=== PATIENT | male | born 1955 | race Caucasian/White ===

== ENCOUNTER 2020-05-09 00:02 | Inpatient (IN) | payer MEDICARE ==
--- NOTE | 2020-05-09 00:20 | ED ---
Chest Pain HPI - General Chief Complaint: Chest Pain Stated Complaint: Chest pain Time Seen by Provider: 05/09/20 00:16 Source: patient Mode of arrival: ambulatory Limitations: no limitations - History of Present Illness Initial Comments: This patient is a 65-year-old man who presents to be evaluated for chest pain. He states that the symptoms had started last night but resolved. The pains recurred this morning and he has taken a total of 6 nitroglycerin throughout the day for them. He indicates pain across the upper chest. States that its a hea vy feeling. No worsening factors, but better with nitroglycerin. Patient states that this is deftly similar to the cardiac pains he has had in the past. No associated symptoms. MD Complaint: chest pain Onset/Timin -: days(s) Onset: during rest Pain Location: left chest, right chest Pain Radiation: LUE Severity: mild Quality: heaviness Consistency: intermittent Improves With: nitroglycerin Worsens With: nothing Treatments Prior to Arrival: nitroglycerin - Related Data Home Medications Medication Instructions Recorded Confirmed Aspirin 81 mg PO DAILY 05/09/20 05/09/20 Atorvastatin [Lipitor] 40 mg PO DAILY 05/09/20 05/09/20 Carvedilol 25 mg PO BID 05/09/20 05/09/20 Cholecalciferol [Vitamin D3 (25 5,000 unit PO DAILY 05/09/20 05/09/20 Mcg = 1000 Iu)] Clopidogrel Bisulfate [Plavix] 75 mg PO DAILY 05/09/20 05/09/20 Isosorbide Mononitrate [Isosorbide 120 mg PO DAILY 05/09/20 05/09/20 Mononitrate ER] Magnesium Oxide [Mag-Oxide] 400 mg PO DAILY 05/09/20 05/09/20 NIFEdipine XL [Procardia XL] 60 mg PO DAILY 05/09/20 05/09/20 Nitroglycerin Sl Tabs [Nitrostat] 0.4 mg PO Q5M PRN 05/09/20 05/09/20 buPROPion SR [Wellbutrin SR] 150 mg PO BID 05/09/20 05/09/20 busPIRone HCL 5 mg PO BID 05/09/20 05/09/20 Previous Rx's Medication Instructions Recorded Lisinopril 20 mg PO BID #30 tab 05/12/20 hydrALAZINE HCL [Apresoline] 75 mg PO TID #270 tab 05/12/20 Allergies Allergy/AdvReac Type Severity Reaction Status Date / Time Penicillins AdvReac Nausea Verified 05/09/20 07:40 Review of Systems ROS Statement: Those systems with pertinent positive or pertinent negative responses have been documented in the HPI. ROS Other: All systems not noted in ROS Statement are negative. Constitutional: Denies: fever, chills Respiratory: Denies: cough, dyspnea Cardiovascular: Reports: chest pain. Denies: palpitations, orthopnea, edema, syncope Gastrointestinal: Denies: abdominal pain, nausea, vomiting, diarrhea, constipation, melena, hematochezia Genitourinary: Denies: dysuria, hematuria Musculoskeletal: Denies: back pain Skin: Denies: rash Neurological: Denies: headache, weakness EKG Findings - EKG Results: EKG: interpreted by FRANSISCOD, sinus rhythm, normal QRS, normal ST/T EKG shows: bradycardia (Rate 53 bpm) - Blocks, [place], Hypertrophy, ST Abn: QRS axis and voltage: left axis deviation (-30 to -90) Past Medical History Past Medical History: Hypertension Additional Past Medical History / Comment(s): [place], Stents, Past Surgical History: Heart Catheterization With Stent Additional Past Surgical History / Comment(s): cx removal Past Psychological History: No Psychological Hx Reported Smoking Status: Never smoker Past Alcohol Use History: None Reported Past Drug Use History: Marijuana General Exam Limitations: no limitations General appearance: alert, in no apparent distress Head exam: Present: atraumatic, normocephalic Eye exam: Present: normal appearance. Absent: scleral icterus, conjunctival injection ENT exam: Present: normal oropharynx Neck exam: Present: normal inspection Respiratory exam: Present: normal lung sounds bilaterally. Absent: respiratory distress, wheezes, rales, rhonchi, stridor Cardiovascular Exam: Present: regular rate, normal rhythm, normal heart sounds. Absent: systolic murmur, diastolic murmur, rubs, gallop GI/Abdominal exam: Present: soft. Absent: distended, tenderness, guarding, rebound, rigid, mass Extremities exam: Present: normal inspection, normal capillary refill. Absent: pedal edema, calf tenderness Back exam: Present: normal inspection Neurological exam: Present: alert Skin exam: Present: warm, dry, intact, normal color. Absent: rash Course Vital Signs 05/09/20 05/09/20 05/09/20 00:05 01:06 02:00 Temperature 98.1 F Pulse Rate 63 55 L 50 L Pulse Rate [ Left] Respiratory 20 18 17 Rate Blood Pressure 187/92 194/106 172/89 Blood Pressure [Left Arm] O2 Sat by Pulse 99 99 99 Oximetry 05/09/20 05/09/20 05/09/20 02:12 02:17 02:40 Temperature 97.9 F Pulse Rate 56 L Pulse Rate [ 54 L Left] Respiratory 20 17 Rate Blood Pressure 177/88 Blood Pressure 200/102 188/101 [Left Arm] O2 Sat by Pulse 96 99 Oximetry Chest Pain MDM - [facility] Patient is 65-year-old man presenting with chest pain he states is very similar to previous coronary chest pain. The patient's initial workup is negative. He has had relief of symptoms with medication here. Patient is admitted to have serial enzymes, telemetry monitoring, cardiology consultation. Disposition Clinical Impression: Acute coronary syndrome Disposition: ADMITTED IP TO THIS HOSP Condition: Serious
[2020-05-09] MEDS ORDERED: MORPHINE SULFATE 4 MG/ML SYRINGE IV STA (00:31)
[2020-05-09] MEDS ORDERED: NITROGLYCERIN OINT 1 INCH/GM PACKET TOPICAL STA (00:31)
[2020-05-09] MEDS ORDERED: ASPIRIN 81 MG PO STA (00:31)
[2020-05-09] MEDS ORDERED: NITROGLYCERIN SL TABS 0.4 MG TAB SUBLINGUAL STA (00:31)
[2020-05-09 00:45] LABS: Basophils % (A) 0 %; Eosinophils # (A) 0.3 k/uL (0-0.7); Eosinophils % (A) 3 %; HCT 43.6 % (39.0-53.0); Lymphocytes # (A) 1.2 k/uL (1.0-4.8); Lymphocytes % (A) 12 %; MCH 30.9 pg (25.0-35.0); MCHC 34.4 g/dL (31.0-37.0); MCV 89.8 fL (80.0-100.0); Mean Platelet Volume 8.4; Monocytes # (A) 0.5 k/uL (0-1.0); Monocytes % (A) 5 %; Neutrophils # (A) 8.1 k/uL (1.3-7.7); Neutrophils % (A) 79 %; Platelet Count 290 k/uL (150-450); RBC 4.86 m/uL (4.30-5.90); RDW 13.3 % (11.5-15.5); WBC 10.3 k/uL (3.8-10.6)
[2020-05-09 00:50] LABS: Partial Thromboplastin Time 25.3 sec (22.0-30.0); Prothrombin Time 10.6 sec (9.0-12.0)
[2020-05-09 00:51] LABS: Albumin 4.8 g/dL (3.5-5.0); Calcium 9.4 mg/dL (8.4-10.2); Potassium 3.6 mmol/L (3.5-5.1); Total Bilirubin 0.4 mg/dL (0.2-1.3); Total Protein 8.2 g/dL (6.3-8.2)
--- NOTE | 2020-05-09 01:03 | XR ---
EXAMINATION TYPE: XR chest 2V DATE OF EXAM: 05/09/2020 COMPARISON: NONE HISTORY: Chest pain TECHNIQUE: FINDINGS: Heart and mediastinum are normal. Lungs are clear. Diaphragm is normal. Bony thorax is inta ct. There are chest leads. IMPRESSION: No active cardiopulmonary disease.
[2020-05-09] MEDS ORDERED: HEPARIN SODIUM,PORCINE 5,000 UNIT/ML 1 ML VIAL IV ONE (01:26)
[2020-05-09] MEDS ORDERED: HEPARIN SODIUM,PORCINE 5,000 UNIT/ML 1 ML VIAL IV PRN (01:26)
[2020-05-09] MEDS ORDERED: LISINOPRIL 20 MG TAB PO STA (01:47)
[2020-05-09] MEDS ORDERED: hydrALAZINE HCL 25 MG TAB PO STA (01:48)
[2020-05-09] MEDS ORDERED: MORPHINE SULFATE 4 MG/ML SYRINGE IV PRN (01:54)
[2020-05-09] MEDS: HEPARIN SOD,PORK IN 0.45% NACL 25,000 UNIT in 0.45% NACL 1 250ML.BAG IV SCH (02:35)
[2020-05-09] MEDS ORDERED: HYDROmorphone 0.5 MG/0.5 ML SYRINGE IVP STA (02:40)
[2020-05-09] MEDS: NITROGLYCERIN SL TABS 0.4 MG TAB SUBLINGUAL PRN ×2 (03:43→03:48)
[2020-05-09] MEDS: buPROPion 75 MG TAB PO SCH ×2 (07:57→20:41)
[2020-05-09] MEDS: MAGNESIUM OXIDE 400 MG TAB PO SCH (07:57)
[2020-05-09] MEDS: ATORVASTATIN 40 MG TAB PO SCH (07:57)
[2020-05-09] MEDS: LISINOPRIL 20 MG TAB PO SCH ×2 (07:57→20:41)
[2020-05-09] MEDS: ASPIRIN 81 MG PO SCH (07:57)
[2020-05-09] MEDS: CLOPIDOGREL 75 MG TAB PO SCH (07:57)
[2020-05-09] MEDS ORDERED: hydrALAZINE HCL 25 MG TAB PO SCH (09:00)
[2020-05-09] MEDS ORDERED: ISOSORBIDE MONONITRATE ER 60 MG TAB.ER.24H PO SCH (09:00)
[2020-05-09] MEDS ORDERED: ISOSORBIDE MONONITRATE ER 30 MG TAB.ER.24H PO SCH (09:00)
[2020-05-09] MEDS ORDERED: ISOSORBIDE MONONITRATE ER 60 MG TAB.ER.24H PO STA (09:43)
--- NOTE | 2020-05-09 09:53 | P.CRDCN ---
History of Present Illness History of present illness: HISTORY OF PRESENTING ILLNESS This is a pleasant 65-year-old male past medical history significant for coronary artery disease s/p multiple PCI's, myocardial infarction, cardiac mass per the patient, hypertension and depression. He does not follow regularly in a cardiology office currently. He is in the process of looking for a new physician. We have been asked to see in consultation for chest pain. According to the patient he has undergone numerous cardiac catheterizations. Most recently was at [facility] earlier this year. He states he has been recommended to undergo bypass grafting however in July of last year he had a myocardial infarction which prolonged the process. Since that time he has not followed up with program admin or a cardiothoracic surgeon. He has been following with his primary care physician in attempts to establish with a cardiothoracic surgeon in [place]. On Saturday evening he started developing a heavy pressure sensation in the midsternal region with episodes of sharp stabbing pains as well. There was radiation down both arms and into his neck associated with nausea and vomiting. He states he was also quite diaphoretic during this episode. He did take nitroglycerin which did relieve his discomfort. Again on Saturday morning he had another episode of chest discomfort prompting him to take another nitro. He continues to have intermittent episodes of ongoing chest pain at rest. No exacerbated by activity or exertion. We requested records from [facility] of most recent cath. Reports reveal in 07/2019 he suffered NSTEMI and received a MARITZA to the distal LAD, MARITZA to the mid RCA and BMS to the distal RCA. On arrival to the emergency department his blood pressure was elevated at 194/106 and gone as high as 200/102. He states he has been compliant with his medications with no recent changes. DIAGNOSTICS EKG reveals sinus bradycardia heart rate of 53 with left axis deviation and evidence of old inferior wall infarct. Chest xray negative for an acute cardiopulmonary process. Laboratory reviewed, WBC 10.3, hemoglobin 15, platelets 290, sodium 138, potassium 3.6, creatinine 1.54 with a GFR of 47, magnesium 2.0, initial troponin was 0.019 and second with 0.041. Current cardiac medications include aspirin 81 mg daily, Plavix 75 mg daily, atorvastatin 40 mg daily, carvedilol 25 mg twice a day, Imdur 120 mg daily, lisinopril 20 mg twice a day, nifedipine 60 mg daily and hydralazine 25 mg 3 times a day. REVIEW OF SYSTEMS At the time of my exam: CONSTITUTIONAL: Denies fever or chills. CARDIOVASCULAR: Complains of chest pain. Denies shortness of breath, orthopnea, PND or palpitations. RESPIRATORY: Denies cough. GASTROINTESTINAL: Complains of intermittent nausea. Denies abdominal pain, diarrhea, constipation or vomiting. MUSCULOSKELETAL: Denies myalgias. NEUROLOGIC: Denies numbness, tingling or weakness. ENDOCRINE: Denies fatigue, weight change, polydipsia or polyurina. GENITOURINARY: Denies burning, hematuria or urgency with micturation. HEMATOLOGIC: Denies history of anemia or bleeding. PHYSICAL EXAMINATION Blood pressure 163/92 heart rate 58 afebrile and maintaining oxygen saturation on room air. CONSTITUTIONAL: No apparent distress. HEENT: Head is normocephalic. Pupils are equal, round. Sclerae anicteric. Mucous membranes of the mouth are moist. No JVD. No carotid bruit. CHEST EXAMINATION: Scattered rhonchi. No rales or wheezes. No chest wall tenderness is noted on palpation or with deep breathing. HEART EXAMINATION: Regular rate and rhythm. S1, S2 heard. No murmurs, gallops or rub. ABDOMEN: Soft, nontender. Positive bowel sounds. EXTREMITIES: 2+ peripheral pulses, no lower extremity edema and no calf tenderness. NEUROLOGIC EXAMINATION: Patient is awake, alert and oriented x3. ASSESSMENT Chest pain Hypertensive emergency Acute kidney injury Coronary artery disease s/p PCI 07/2020 with multiple interventions in the past Dyslipidemia Depression PLAN Continue to obtain serial cardiac enzymes. Initial minimal troponin leak could be secondary to hypertensive emergency. No EKG evidence of acute infarct currently. Continue heparin infusion at this time pending third troponin. Records from [facility] reviewed, they are vague about cardiac anatomy aside from the fact he had PCI. We will request the actual films for review. Obtain 2D echocardiogram and doppler study to assess cardiac structure and function. Increase hydralazine to 75 mg TID. Coreg currently on hold secondary to bradycardia. Further recommendations to follow based on clinical course. Thank you kindly for this consultation. Nurse Practitioner note has been reviewed, I agree with a documented findings and plan of care. Patient was seen and examined. Past Medical History Past Medical History: Hypertension Additional Past Medical History / Comment(s): [place], Stents, History of Any Multi-Drug Resistant Organisms: None Reported Past Surgical History: Heart Catheterization With Stent Additional Past Surgical History / Comment(s): cx removal Past Anesthesia/Blood Transfusion Reactions: No Reported Reaction Date of Last Stent Placement:: 09/2019 Past Psychological History: No Psychological Hx Reported Smoking Status: Never smoker Past Alcohol Use History: None Reported Past Drug Use History: Marijuana Medications and Allergies Home Medications Medication Instructions Recorded Confirmed Type Aspirin 81 mg PO DAILY 05/09/20 05/09/20 History Atorvastatin [Lipitor] 40 mg PO DAILY 05/09/20 05/09/20 History Carvedilol 25 mg PO BID 05/09/20 05/09/20 History Cholecalciferol [Vitamin D3 (25 5,000 unit PO DAILY 05/09/20 05/09/20 History Mcg = 1000 Iu)] Clopidogrel Bisulfate [Plavix] 75 mg PO DAILY 05/09/20 05/09/20 History Isosorbide Mononitrate [Isosorbide 120 mg PO DAILY 05/09/20 05/09/20 History Mononitrate ER] Lisinopril 20 mg PO BID 05/09/20 05/09/20 History Magnesium Oxide [Mag-Oxide] 400 mg PO DAILY 05/09/20 05/09/20 History NIFEdipine XL [Procardia Xl] 60 mg PO DAILY 05/09/20 05/09/20 History Nitroglycerin Sl Tabs [Nitrostat] 0.4 mg PO Q5M PRN 05/09/20 05/09/20 History buPROPion SR [Wellbutrin Sr] 150 mg PO BID 05/09/20 05/09/20 History busPIRone HCL 5 mg PO BID 05/09/20 05/09/20 History hydrALAZINE HCL 25 mg PO TID@0600,1400,2200 05/09/20 05/09/20 History Allergies Allergy/AdvReac Type Severity Reaction Status Date / Time Penicillins AdvReac Nausea Verified 05/09/20 07:40 Physical Exam Vitals: Vital Signs Temp Pulse Pulse Resp BP BP Pulse Ox 05/09/20 07:30 97.8 F 58 L 18 163/92 99 05/09/20 05:00 97.7 F 55 L 16 175/99 96 05/09/20 02:40 56 L 17 177/88 99 05/09/20 02:17 188/101 05/09/20 02:12 97.9 F 54 L 20 200/102 96 05/09/20 02:00 50 L 17 172/89 99 05/09/20 01:06 55 L 18 194/106 99 05/09/20 00:05 98.1 F 63 20 187/92 99 Intake and Output 05/08/20 05/09/20 05/09/20 22:59 06:59 14:59 Intake Total 50.835 Balance 50.835 Intake: Intake, IV Titration 50.835 Amount Heparin Sod,Pork in 0.45% 50.835 NaCl 25,000 unit In 0.45 % NaCl 1 250ml.bag @ 10 UNITS/KG/HR 9.299 mls/hr IV .Q24H [facility] Rx#: [id number] Other: Weight 90.22 kg Results 05/09/20 00:26 05/09/20 00:26 Cardiac Enzymes 05/09/20 05/09/20 05/09/20 Range/Units 00:26 00:26 07:26 AST 25 (17-59) U/L Troponin I 0.019 0.041 H* (0.000-0.034) ng/mL Coagulation 05/09/20 05/09/20 Range/Units 00:26 07:26 PT 10.6 (9.0-12.0) sec APTT 25.3 35.5 H (22.0-30.0) sec CBC 05/09/20 Range/Units 00:26 WBC 10.3 (3.8-10.6) k/uL RBC 4.86 (4.30-5.90) m/uL Hgb 15.0 (13.0-17.5) gm/dL Hct 43.6 (39.0-53.0) % Plt Count 290 (150-450) k/uL Comprehensive Metabolic Panel 05/09/20 Range/Units 00:26 Sodium 138 (137-145) mmol/L Potassium 3.6 (3.5-5.1) mmol/L Chloride 103 (98-107) mmol/L Carbon Dioxide 22 (22-30) mmol/L BUN 10 (9-20) mg/dL Creatinine 1.54 H (0.66-1.25) mg/dL Glucose 109 H (74-99) mg/dL Calcium 9.4 (8.4-10.2) mg/dL AST 25 (17-59) U/L ALT 20 (4-49) U/L Alkaline Phosphatase 94 (38-126) U/L Total Protein 8.2 (6.3-8.2) g/dL Albumin 4.8 (3.5-5.0) g/dL Current Medications Generic Name Dose Route Start Last Admin Trade Name Freq PRN Reason Stop Dose Admin Aspirin 81 mg 05/09/20 09:00 05/09/20 07:57 Aspirin PO 81 mg DAILY [facility] Administration Atorvastatin Calcium 40 mg 05/09/20 09:00 05/09/20 07:57 Lipitor PO 40 mg DAILY [facility] Administration Bupropion HCl 150 mg 05/09/20 09:00 05/09/20 07:57 Wellbutrin PO 150 mg BID [facility] Administration Clopidogrel Bisulfate 75 mg 05/09/20 09:00 05/09/20 07:57 Plavix PO 75 mg DAILY [facility] Administration Heparin Sodium (Porcine) 0 unit 05/09/20 01:26 Heparin IV PER PROTOCOL PRN Low PTT Protocol Hydralazine HCl 75 mg 05/09/20 09:00 Apresoline PO TID [facility] Heparin Sodium/Sodium Chloride 250 mls @ 9.299 mls/hr 05/09/20 01:30 05/09/20 08:03 25,000 unit/ Sodium Chloride IV 12 units/kg/hr .Q24H [facility] 11.158 mls/hr Titration Protocol 10 UNITS/KG/HR Isosorbide Mononitrate 60 mg 05/09/20 09:00 05/09/20 08:36 Imdur PO 30 mg DAILY [facility] Administration Lisinopril 20 mg 05/09/20 09:00 05/09/20 07:57 Zestril PO 20 mg BID [facility] Administration Magnesium Oxide 400 mg 05/09/20 09:00 05/09/20 07:57 Mag-Ox PO 400 mg DAILY [facility] Administration Morphine Sulfate 4 mg 05/09/20 01:54 Morphine Sulfate (Inj) IV Q5M PRN Chest Pain Nifedipine 60 mg 05/09/20 09:00 05/09/20 07:58 Procardia Xl PO 60 mg DAILY [facility] Administration Nitroglycerin 0.4 mg 05/09/20 01:54 05/09/20 03:43 Nitrostat SUBLINGUAL 0.4 mg Q5M PRN Administration Chest Pain Sodium Chloride 10 ml 05/09/20 09:00 05/09/20 07:59 Saline Flush IV Not Given BID [facility] Intake and Output 05/08/20 05/09/20 05/09/20 22:59 06:59 14:59 Intake Total 50.835 Balance 50.835 Intake: Intake, IV Titration 50.835 Amount Heparin Sod,Pork in 0.45% 50.835 NaCl 25,000 unit In 0.45 % NaCl 1 250ml.bag @ 10 UNITS/KG/HR 9.299 mls/hr IV .Q24H [facility] Rx#: [id number] Other: Weight 90.22 kg 05/09/20 00:26 05/09/20 00:26
[2020-05-09] MEDS: hydrALAZINE HCL 25 MG TAB PO SCH ×3 (10:58→22:48)
[2020-05-09] MEDS ORDERED: ALPRAZolam 0.5 MG TAB PO PRN (12:11)
[2020-05-09] MEDS ORDERED: SODIUM CHLORIDE 0.9% 1,000 ML in EMPTY BAG 1 BAG IV ONE (12:11)
[2020-05-09] MEDS ORDERED: ALPRAZolam 0.25 MG TAB PO PRN (12:11)
--- NOTE | 2020-05-09 12:24 | P.HPIM ---
History of Present Illness This is a pleasant 65 years old male with past medical history of coronary artery disease status post stent, hypertension. Patient states that he has history of 10-12 stents, he follows up with basketball assembler and referred however he referred him last month also he follow-up with Aleena Tyler . Presents because of chest pain 2-3 days duration, with lack similar chest pain when he has heart attack. Centrally radiating to both arm about 7-8/10 in severity, associated with nausea vomiting but no dyspnea. Patient states that he was compliant with his medication Also is complaining of from little bit increased frequency of urination with little amount about 4-5 times per night. No diarrhea. Denies smoking, alcohol or illicit drugs Vital signs stable, blood pressure on the high side 165/88, was 200/1 or 2 upon admission. Labs including CBC, INR, liver enzymes are unremarkable. Creatinine is elevated at 1.5, unknown baseline. Troponin is -0.019 and then increase to 0.041 Chest x-ray: No acute process by radiologist. EKG showing sinus bradycardia at [address]-T changes and QTC of 412. In the emergency room patient got aspirin 324 mg and was started on heparin drip, also receive blood pressure medication Review of Systems CONSTITUTIONAL: No fever, no malaise, no fatigue. HEENT: No recent visual problems or hearing problems. Denied any sore throat. CARDIOVASCULAR: No orthopnea, PND, no palpitations, no syncope. PULMONARY: No shortness of breath, no cough, no hemoptysis. GASTROINTESTINAL: No diarrhea, no nausea, no vomiting, no abdominal pain. Normoactive bowel sounds. NEUROLOGICAL: No headaches, no weakness, no numbness. HEMATOLOGICAL: Denies any bleeding or petechiae. GENITOURINARY: Denies any burning micturition, frequency, or urgency. MUSCULOSKELETAL/RHEUMATOLOGICAL: Denies any joint pain, swelling, or any muscle pain. ENDOCRINE: Denies any polyuria or polydipsia. Past Medical History Past Medical History: Hypertension Additional Past Medical History / Comment(s): [place], Stents, History of Any Multi-Drug Resistant Organisms: None Reported Past Surgical History: Heart Catheterization With Stent Additional Past Surgical History / Comment(s): cx removal Past Anesthesia/Blood Transfusion Reactions: No Reported Reaction Date of Last Stent Placement:: 09/2019 Past Psychological History: No Psychological Hx Reported Smoking Status: Never smoker Past Alcohol Use History: None Reported Past Drug Use History: Marijuana Medications and Allergies Home Medications Medication Instructions Recorded Confirmed Type Aspirin 81 mg PO DAILY 05/09/20 05/09/20 History Atorvastatin [Lipitor] 40 mg PO DAILY 05/09/20 05/09/20 History Carvedilol 25 mg PO BID 05/09/20 05/09/20 History Cholecalciferol [Vitamin D3 (25 5,000 unit PO DAILY 05/09/20 05/09/20 History Mcg = 1000 Iu)] Clopidogrel Bisulfate [Plavix] 75 mg PO DAILY 05/09/20 05/09/20 History Isosorbide Mononitrate [Isosorbide 120 mg PO DAILY 05/09/20 05/09/20 History Mononitrate ER] Lisinopril 20 mg PO BID 05/09/20 05/09/20 History Magnesium Oxide [Mag-Oxide] 400 mg PO DAILY 05/09/20 05/09/20 History NIFEdipine XL [Procardia Xl] 60 mg PO DAILY 05/09/20 05/09/20 History Nitroglycerin Sl Tabs [Nitrostat] 0.4 mg PO Q5M PRN 05/09/20 05/09/20 History buPROPion SR [Wellbutrin Sr] 150 mg PO BID 05/09/20 05/09/20 History busPIRone HCL 5 mg PO BID 05/09/20 05/09/20 History hydrALAZINE HCL 25 mg PO TID@0600,1400,2200 05/09/20 05/09/20 History Allergies Allergy/AdvReac Type Severity Reaction Status Date / Time Penicillins AdvReac Nausea Verified 05/09/20 07:40 Physical Exam Vitals: Vital Signs Temp Pulse Pulse Resp BP BP Pulse Ox 05/09/20 10:58 67 18 165/88 97 05/09/20 07:30 97.8 F 58 L 18 163/92 99 05/09/20 05:00 97.7 F 55 L 16 175/99 96 05/09/20 02:40 56 L 17 177/88 99 05/09/20 02:17 188/101 05/09/20 02:12 97.9 F 54 L 20 200/102 96 05/09/20 02:00 50 L 17 172/89 99 05/09/20 01:06 55 L 18 194/106 99 05/09/20 00:05 98.1 F 63 20 187/92 99 Intake and Output 05/08/20 05/09/20 05/09/20 22:59 06:59 14:59 Intake Total 50.835 Balance 50.835 Intake: Intake, IV Titration 50.835 Amount Heparin Sod,Pork in 0.45% 50.835 NaCl 25,000 unit In 0.45 % NaCl 1 250ml.bag @ 10 UNITS/KG/HR 9.299 mls/hr IV .Q24H [facility] Rx#: [id number] Other: Weight 90.22 kg GENERAL: The patient is alert and oriented x3, not in any acute distress. Well developed, well nourished. HEENT: Pupils are round and equally reacting to light. EOMI. No scleral icterus. No conjunctival pallor. Normocephalic, atraumatic. No pharyngeal erythema. No thyromegaly. CARDIOVASCULAR: S1 and S2 present. No murmurs, rubs, or gallops. PULMONARY: Chest is clear to auscultation, no wheezing or crackles. ABDOMEN: Soft, nontender, nondistended, normoactive bowel sounds. No palpable organomegaly. MUSCULOSKELETAL: No joint swelling or deformity. EXTREMITIES: No cyanosis, clubbing, or pedal edema. NEUROLOGICAL: Gross neurological examination did not reveal any focal deficits. SKIN: No rashes. No petechiae Results CBC & Chem 7: 05/09/20 00:26 05/09/20 00:26 Labs: Abnormal Lab Results - Last 24 Hours (Table) 05/09/20 05/09/20 05/09/20 Range/Units 00:26 00:26 07:26 Neutrophils # 8.1 H (1.3-7.7) k/uL APTT 35.5 H (22.0-30.0) sec Creatinine 1.54 H (0.66-1.25) mg/dL Glucose 109 H (74-99) mg/dL Troponin I (0.000-0.034) ng/mL 05/09/20 Range/Units 07:26 Neutrophils # (1.3-7.7) k/uL APTT (22.0-30.0) sec Creatinine (0.66-1.25) mg/dL Glucose (74-99) mg/dL Troponin I 0.041 H* (0.000-0.034) ng/mL Thrombosis Risk Factor Assmnt - Choose All That Apply Each Risk Factor Represents 2 Points: Age 61-74 years Thrombosis Risk Factor Assessment Total Risk Factor Score: 2 Thrombosis Risk Factor Assessment Level: Low Risk Assessment and Plan Assessment: Elevated troponin, suspicious for non-STEMI Hypertension, with urgency Acute kidney injury History of coronary artery disease status post stent placement Plan: This is a pleasant 65 years old male who presents with chest pain and hypertensive urgency. Also achy. Continue with aspirin and heparin drip, cardiology consult. Continue with intravenous hydration. Resume his blood pressure medication of hydralazine, nifedipine and Coreg which is increased to 25 mg twice daily, hydralazine increased to 75 mg 3 times a day, also call nephrology consult and urinalysis Labs and medication were reviewed.. Continue same treatment. Continue with symptomatic treatment. Resume home medication. Monitor lytes and vitals. DVT and GI prophylaxis. Further recommendations of the clinical course of the patient DVT prophylaxis: heparin GI Prophylaxis: Pepcid PT/OT: Pending Prognosis is guarded
[2020-05-09] MEDS: CARVEDILOL 12.5 MG TAB PO SCH (17:22)
[2020-05-09] MEDS: FAMOTIDINE 20 MG/2 ML VIAL IV SCH (20:41)
[2020-05-10 01:00] LABS: Appearance,Urine Clear (Clear); Bilirubin,Urine Negative (Negative); Blood,Urine Negative (Negative); Color,Urine Yellow; Glucose,Urine (UA) Negative (Negative); Ketones,Urine Negative (Negative); Leukocyte Esterase,Urine Negative (Negative); Nitrite,Urine Negative (Negative); Protein,Urine Negative (Negative); Specific Gravity,Urine 1.005 (1.001-1.035); Urobilinogen,Urine <2.0 mg/dL (<2.0)
[2020-05-10] MEDS: HEPARIN SOD,PORK IN 0.45% NACL 25,000 UNIT in 0.45% NACL 1 250ML.BAG IV SCH (01:31)
[2020-05-10 05:46] LABS: Basophils % (A) 1 %; Eosinophils # (A) 0.2 k/uL (0-0.7); Eosinophils % (A) 3 %; HCT 41.8 % (39.0-53.0); HGB 14.1 gm/dL (13.0-17.5); Lymphocytes # (A) 1.8 k/uL (1.0-4.8); Lymphocytes % (A) 23 %; MCH 30.5 pg (25.0-35.0); MCHC 33.7 g/dL (31.0-37.0); MCV 90.6 fL (80.0-100.0); Mean Platelet Volume 8.3; Monocytes # (A) 0.5 k/uL (0-1.0); Monocytes % (A) 7 %; Neutrophils % (A) 64 %; Platelet Count 237 k/uL (150-450); RBC 4.61 m/uL (4.30-5.90); RDW 13.3 % (11.5-15.5); WBC 7.8 k/uL (3.8-10.6)
[2020-05-10 05:56] LABS: African American GFR (CKD) >90 (>60 ml/min/1.73 sqM); Anion Gap 8 mmol/L; Blood Urea Nitrogen 9 mg/dL (9-20); Calcium 8.9 mg/dL (8.4-10.2); Carbon Dioxide 25 mmol/L (22-30); Chloride 106 mmol/L (98-107); Cholesterol 90 mg/dL (<200); Glucose 93 mg/dL (74-99); HDL Cholesterol 30 mg/dL (40-60); LDL Cholesterol,Calculated 32 mg/dL (0-99); Non-African American GFR(CKD) 85 (>60 ml/min/1.73 sqM); Sodium 139 mmol/L (137-145); Triglycerides 142 mg/dL (<150)
--- NOTE | 2020-05-10 07:52 | P.PN ---
Subjective Progress Note Date: 05/10/20 Principal diagnosis: Acute coronary event This is a 65-year-old gentleman with coronary artery disease and prior coronary stenting multiple times performed at [facility] as well as hypertension and dyslipidemia presented to the hospital with chest discomfort and ruled in for acute coronary event. He was seen this morning. Unfortunately he continues to have mild ongoing chest discomfort. He is scheduled to undergo a heart catheterization this morning. The procedure in details was explained to him and he would like to pursue right radial approach. Meanwhile will continue the current medical regimen. Vital signs are stable at this point. Objective - Vital Signs Vital signs: Vital Signs Temp 97.9 F 05/10/20 04:20 Pulse 67 05/10/20 04:20 Resp 16 05/10/20 04:20 BP 153/66 05/10/20 04:20 Pulse Ox 96 05/10/20 04:20 Intake & Output 05/09/20 05/10/20 05/10/20 18:59 06:59 18:59 Intake Total 368.011 621.989 Balance 368.011 621.989 Weight 90.2 kg Intake: Intake, IV Titration 128.011 121.989 Amount Heparin Sod,Pork in 0.45% 128.011 121.989 NaCl 25,000 unit In 0.45 % NaCl 1 250ml.bag @ 10 UNITS/KG/HR 9.299 mls/hr IV .Q24H [facility] Rx#: [id number] Oral 240 500 Other: # Voids 1 1 - Constitutional General appearance: Present: no acute distress - Respiratory Respiratory: bilateral: CTA - Cardiovascular Rhythm: regular Heart sounds: normal: S1, S2 - Labs CBC & Chem 7: 05/10/20 05:28 05/10/20 05:28 Labs: Abnormal Lab Results - Last 24 Hours (Table) 05/09/20 05/09/20 05/09/20 Range/Units 07:26 13:19 20:48 APTT 33.1 H 44.1 H (22.0-30.0) sec Troponin I 0.041 H* (0.000-0.034) ng/mL HDL Cholesterol (40-60) mg/dL 05/10/20 05/10/20 Range/Units 05:28 05:28 APTT 45.3 H (22.0-30.0) sec Troponin I (0.000-0.034) ng/mL HDL Cholesterol 30 L (40-60) mg/dL Assessment and Plan Assessment: Assessment #1 acute coronary event #2 coronary artery disease and multiple stenting in the past #3 multiple comorbid conditions Plan #1 proceed with coronary angiogram #2 further recommendation to follow that
[2020-05-10] MEDS: CARVEDILOL 12.5 MG TAB PO SCH ×2 (08:00→16:47)
[2020-05-10] MEDS: hydrALAZINE HCL 25 MG TAB PO SCH ×3 (08:01→20:57)
[2020-05-10] MEDS: ISOSORBIDE MONONITRATE ER 60 MG TAB.ER.24H PO SCH (08:01)
[2020-05-10] MEDS: LISINOPRIL 20 MG TAB PO SCH ×2 (08:01→20:57)
[2020-05-10] MEDS: CLOPIDOGREL 75 MG TAB PO SCH (08:01)
[2020-05-10] MEDS: MAGNESIUM OXIDE 400 MG TAB PO SCH (08:01)
[2020-05-10] MEDS: FAMOTIDINE 20 MG/2 ML VIAL IV SCH ×2 (08:01→20:56)
[2020-05-10] MEDS: ASPIRIN 81 MG PO SCH (08:01)
[2020-05-10] MEDS: ATORVASTATIN 40 MG TAB PO SCH (08:01)
[2020-05-10] MEDS: buPROPion 75 MG TAB PO SCH ×2 (08:02→21:26)
--- NOTE | 2020-05-10 08:16 | P.NPCON ---
History of Present Illness - Reason for Consult acute renal failure - History of Present Illness Reason for consultation: Acute kidney injury History of present illness: Patient is a 65-year-old male seen in renal consultation for acute kidney injury. Patient presented to the hospital with chest pain. Patient states the chest was started about 1 day prior to admission for which she took multiple nitroglycerin throughout the day. Patient states the pain is on the right part of his chest. He describes the pain as stabbing as well as pressure-like. He does admit to radiation down both his arms. He has history of significant coronary artery disease with multiple stents. He denies any prior history of kidney disease. No history of diabetes. Denies family history of renal disease. Patient's creatinine was 1.54 on admission and is 0.94 today. Blood pressure on admission was in the systolic 180s to 190s but is now much better controlled. Denies hematuria or dysuria. He schedule for cardiac catheterization today. He was started on IV fluids last night. Denies vomiting or diarrhea. No abdominal pain. No syncopal episodes. Vital signs are stable. General: The patient appeared well nourished and normally developed. HEENT: Head exam is unremarkable. Neck is without jugular venous distension. LUNGS: Lungs are clear to auscultation and percussion. Breath sounds decreased. HEART: Rate and Rhythm are regular. ABDOMEN: Soft, nontender. EXTREMITITES: No clubbing, cyanosis, or edema. Past Medical History Past Medical History: Hypertension Additional Past Medical History / Comment(s): LA, Stents, History of Any Multi-Drug Resistant Organisms: None Reported Past Surgical History: Heart Catheterization With Stent Additional Past Surgical History / Comment(s): cx removal Past Anesthesia/Blood Transfusion Reactions: No Reported Reaction Date of Last Stent Placement:: 09/2019 Past Psychological History: No Psychological Hx Reported Smoking Status: Never smoker Past Alcohol Use History: None Reported Past Drug Use History: Marijuana Medications and Allergies Home Medications Medication Instructions Recorded Confirmed Type Aspirin 81 mg PO DAILY 05/09/20 05/09/20 History Atorvastatin [Lipitor] 40 mg PO DAILY 05/09/20 05/09/20 History Carvedilol 25 mg PO BID 05/09/20 05/09/20 History Cholecalciferol [Vitamin D3 (25 5,000 unit PO DAILY 05/09/20 05/09/20 History Mcg = 1000 Iu)] Clopidogrel Bisulfate [Plavix] 75 mg PO DAILY 05/09/20 05/09/20 History Isosorbide Mononitrate [Isosorbide 120 mg PO DAILY 05/09/20 05/09/20 History Mononitrate ER] Lisinopril 20 mg PO BID 05/09/20 05/09/20 History Magnesium Oxide [Mag-Oxide] 400 mg PO DAILY 05/09/20 05/09/20 History NIFEdipine XL [Procardia Xl] 60 mg PO DAILY 05/09/20 05/09/20 History Nitroglycerin Sl Tabs [Nitrostat] 0.4 mg PO Q5M PRN 05/09/20 05/09/20 History buPROPion SR [Wellbutrin Sr] 150 mg PO BID 05/09/20 05/09/20 History busPIRone HCL 5 mg PO BID 05/09/20 05/09/20 History hydrALAZINE HCL 25 mg PO TID@0600,1400,2200 05/09/20 05/09/20 History Allergies Allergy/AdvReac Type Severity Reaction Status Date / Time Penicillins AdvReac Nausea Verified 05/09/20 07:40 Physical Exam Vitals: Vital Signs Temp Pulse Resp BP BP Pulse Ox 05/10/20 04:20 97.9 F 67 16 153/66 96 05/09/20 22:43 130/72 05/09/20 20:29 98.1 F 63 16 136/62 95 05/09/20 16:45 87 162/84 97 05/09/20 10:58 67 18 165/88 97 Intake and Output 05/09/20 05/10/20 05/10/20 22:59 06:59 14:59 Intake Total 740 121.989 Balance 740 121.989 Intake: Intake, IV Titration 121.989 Amount Heparin Sod,Pork in 0.45% 121.989 NaCl 25,000 unit In 0.45 % NaCl 1 250ml.bag @ 10 UNITS/KG/HR 9.299 mls/hr IV .Q24H [facility] Rx#: [id number] Oral 740 Other: # Voids 1 Weight 90.2 kg Results - Lab Results Most recent lab results Calcium 8.9 mg/dL (8.4-10.2) 05/10/20 05:28 Magnesium 2.0 mg/dL (1.6-2.3) 05/10/20 05:28 05/10/20 05:28 05/10/20 05:28 Assessment and Plan Plan: Assessment: 1. Acute kidney injury mostly prerenal secondary to hemodynamic instability. Creatinine was 1.54 on admission and is 0.94 today. UA benign. 2. Chest pain secondary to acute coronary syndrome. Etiology following. Scheduled for coronary angiogram today. 3. History of coronary disease with multiple stents. 4. Benign hypertension. Better controlled. Plan: Maintain normal saline at current rate. Hep-Lock 10 hours post IV contrast exposure. Continue to monitor renal function and urine output. Avoid nephrotoxins. Thank you for the consultation. I will continue to follow patient with you during his hospital stay.
[2020-05-10] MEDS ORDERED: MAGNESIUM OXIDE 400 MG PO SCH (09:00)
[2020-05-10] MEDS ORDERED: ISOSORBIDE MONONITRATE ER 30 MG TAB.ER.24H PO SCH (09:00)
--- NOTE | 2020-05-10 09:05 | ECHOF ---
Referral Reason:CAD/ CP MEASUREMENTS -------- HEIGHT: 182.9 cm WEIGHT: 89.8 kg BP: 163/92 RVIDd: 3.6 cm (< 3.3) IVSd: 1.9 cm (0.6 - 1.1) LVIDd: 3.8 cm (3.9 - 5.3) LVPWd: 1.8 cm (0.6 - 1.1) IVSs: 2.4 cm LVIDs: 2.7 cm LVPWs: 2.0 cm LAESV Index (A-L): 27.91 ml/m Ao Diam: 3.9 cm (2.0 - 3.7) AV Cusp: 2.2 cm (1.5 - 2.6) MV EXCURSION: 15.119 mm (> 18.000) MV EF SLOPE: 30 mm/s (70 - 150) EPSS: 0.7 cm MV E Lex: 0.54 m/s MV DecT: 355 ms MV A Lex: 0.74 m/s MV E/A Ratio: 0.73 AR PHT: 1025 ms RAP: 5.00 mmHg RVSP: 15.28 mmHg FINDINGS -------- This was a technically adequate study. The left ventricular size is normal. There is severe concentric left ventricular hypertrophy. Ove rall left ventricular systolic function is normal with, an EF between 55 - 60 %. The diastolic fill ing pattern is normal for the age of the patient 9.25. The right ventricle is mildly enlarged. Normal LA size by volume 22+/-6 ml/m2. The right atrial size is normal. Interatrial and interventricular septum intact. The aortic valve is trileaflet and appears structurally normal. There is mild aortic valve sclerosi s. Trace to mild aortic regurgitation. There is no evidence of aortic stenosis. There is trace to mild mitral regurgitation. Mild tricuspid regurgitation present. There is no evidence of pulmonary hypertension. The right v entricular systolic pressure, as measured by Doppler, is 15.28mmHg. There is no pulmonic regurgitation present. The mass is located in the left atrial cavity. The mass appears to be attached at the fossa ovalis/ atrial septum. The aortic root size is normal. Normal inferior vena cava with normal inspiratory collapse consistent with estimated right atrial pre ssure of 5 mmHg. There is no pericardial effusion. CONCLUSIONS -------- 1. This was a technically adequate study. 2. The left ventricular size is normal. 3. There is severe concentric left ventricular hypertrophy. 4. Overall left ventricular systolic function is normal with, an EF between 55 - 60 %. 5. The diastolic filling pattern is normal for the age of the patient 9.25 6. The right ventricle is mildly enlarged. 7. Normal LA size by volume 22+/-6 ml/m2. 8. The right atrial size is normal. 9. Interatrial and interventricular septum intact. 10. The aortic valve is trileaflet and appears structurally normal. 11. There is mild aortic valve sclerosis. 12. Trace to mild aortic regurgitation. 13. There is no evidence of aortic stenosis. 14. There is trace to mild mitral regurgitation. 15. Mild tricuspid regurgitation present. 16. There is no evidence of pulmonary hypertension. 17. The right ventricular systolic pressure, as measured by Doppler, is 15.28mmHg. 18. There is no pulmonic regurgitation present. 19. The mass appears to be attached at the fossa ovalis/atrial septum. 20. The aortic root size is normal. 21. Normal inferior vena cava with normal inspiratory collapse consistent with estimated right atrial pressure of 5 mmHg. 22. There is no pericardial effusion. SHOTBLAST OPERATOR: Paty Mcgregor RDCS
[2020-05-10] MEDS ORDERED: SODIUM CHLORIDE 0.9% 1,000 ML IV ONE (10:21)
[2020-05-10] MEDS ORDERED: MIDAZOLAM 2 MG/2 ML VIAL IVP ONE ×3 (10:27→10:47)
[2020-05-10] MEDS ORDERED: LIDOCAINE 1% INJ 10MG/ML (20 ML MDV) SQ ONE (10:47)
[2020-05-10] MEDS ORDERED: HEPARIN SODIUM 1,000 UN/ML (10ML VL) IV ONE ×2 (10:49→11:00)
[2020-05-10] MEDS ORDERED: VERAPAMIL SYRINGE (5 MG/10 ML) INTRAARTER ONE (10:49)
[2020-05-10] MEDS ORDERED: SODIUM CHLORIDE 0.9% 500 ML 500 ML IV ONE (10:51)
[2020-05-10] MEDS: fentaNYL (PF) 50 MCG/ML 2 ML AMP IVP ONE ×2 (10:58→11:12)
[2020-05-10] MEDS ORDERED: IOPAMIDOL-370 100ML BTL INJ ONE ×2 (11:06→11:17)
[2020-05-10] MEDS ORDERED: NITROGLYCERIN 1000MCG/10ML SYRINGE INTRACORON ONE (11:12)
[2020-05-10] MEDS ORDERED: CLOPIDOGREL 75 MG TAB PO ONE (11:17)
[2020-05-10] MEDS ORDERED: ATROPINE SULFATE 0.1 MG/ML 10ML SYRINGE IV PRN (11:44)
[2020-05-10] MEDS ORDERED: NITROGLYCERIN SL TABS 0.4 MG TAB SUBLINGUAL PRN (11:44)
[2020-05-10] MEDS ORDERED: ZOLPIDEM 5 MG TAB PO PRN (11:44)
[2020-05-10] MEDS ORDERED: MAG HYDROX/AL HYDROX/SIMETH 30 ML CUP PO PRN (11:44)
[2020-05-10] MEDS ORDERED: RX INFO: IV CONTRAST WAS GIVEN 1 EACH MISC MISCELLANE PRN (11:44)
[2020-05-10] MEDS ORDERED: SODIUM CHLORIDE 0.9% 1,000 ML IV SCH (11:45)
--- NOTE | 2020-05-10 12:29 | CC ---
CARDIAC CATHETERIZATION REPORT DATE OF SERVICE: May 10, 2020 PERFORMING PHYSICIAN: Howard Garces MD. PROCEDURE PERFORMED: 1. Selective right and left coronary angiogram. 2. Successful PTCA of the distal right coronary artery using 3.5 mm balloon with an excellent angiographic result and reduction of stenosis from 90% to 10%. 3. Left heart catheterization. 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 He continues to have ongoing chest discomfort. We offered the patient to be transferred to [facility], but the patient would like to relocate in this area and establish a wiping rag washer in this area. APPROACH: Right radial artery. COMPLICATION: None. LEVEL OF SEDATION: Moderate with sedation length of 34 minutes. PROCEDURE DESCRIPTION: After obtaining an informed consent, the patient was brought to the cardiac baker laboratory. The right radial artery was cannulated using micropuncture technique and a micropuncture wire passed easily. Then I placed a 6-Mexican sheath. At that point, anticoagulation was initiated using heparin and the patient was given a total of 10,000 units of heparin IV. Selective right and left coronary angiogram performed using JR4 and JL3.5 catheters. After that, I did intervene on the right coronary artery. Please see a separate paragraph for that. After that, I did leave heart catheterization using 6-Mexican pigtail catheter. The procedure was completed without any complication. SELECTIVE CORONARY ANGIOGRAM: 1. The right coronary artery is a large caliber vessel and it is a dominant vessel. The RCA is stented in the mid and distal portion. There was severe in-stent restenosis involving the distal RCA appeared to be in the range of 90% to 95%. The RCA after that bifurcates into PDA and PLV branches. The PDA branch is a moderate caliber vessel with severe lesion involving the midportion and the PLV branch is a large caliber vessel with mild disease only. 2. The left main is a long left main and appeared to be angiographically normal. It bifurcates into LCX, ramus intermedius, and left anterior descending artery. 3. The LCX is a moderate caliber vessel. The LCX is chronically occluded in the proximal portion, which seems to be in-stent occlusion. 4. The ramus intermedius is a moderate caliber vessel and seems to be stented and the stent is patent. 5. The LAD is a large caliber vessel. The LAD has long area of stent in the midportion with mild in-stent restenosis. The proximal LAD appeared to have mild de Tere disease only and the LAD distally appeared to have a lesion in the range of 50%, which appeared to be also de Tere. HEMODYNAMICS: The LVEDP was about 6 to 7 mm mmHg without significant gradient across aortic valve. PCI OF THE RCA: Anticoagulation was initiated using heparin with continuous ACT monitoring throughout the procedure. I gave the patient 32035 units of heparin at the beginning of the procedure with additional 2000 during the procedure. I did engage the RCA using JR4 guide. I did wire it using a run-through wire. I did balloon angioplasty of the distal RCA using 3.5 x 15 mm balloon. Then 3.0 x 10 mm AngioSculpt balloon. The angiogram showed excellent angiographic results. There was multiple layers of stent in that segment of the distal RCA and we got good angiographic results with balloon angioplasty alone without adding a new stent. CONCLUSION: 1. Critical in-stent restenosis involving the distal RCA. I did successful PTCA ballooning of the distal RCA. 2. Normal left main coronary artery. 3. Chronic total occlusion of the left circumflex which seems to be in-stent occlusion. 4. Patent stent in the ramus intermedius coronary artery. 5. Patent stent in the mid left anterior descending artery. POSTPROCEDURE MANAGEMENT: 1. Maximize medical treatment. 2. Follow up with the patient. MMODL / IJN: [id number] /
--- NOTE | 2020-05-10 17:56 | P.PN ---
Subjective This is a pleasant 65 years old male with past medical history of coronary artery disease status post stent, hypertension. Patient states that he has history of 10-12 stents, he follows up with catalogue clerk and referred however he referred him last month also he follow-up with Aleena Tyler . Presents because of chest pain 2-3 days duration, with lack similar chest pain when he has heart attack. Centrally radiating to both arm about 7-8/10 in severity, associated with nausea vomiting but no dyspnea. Patient states that he was compliant with his medication Also is complaining of from little bit increased frequency of urination with little amount about 4-5 times per night. No diarrhea. Denies smoking, alcohol or illicit drugs Vital signs stable, blood pressure on the high side 165/88, was 200/1 or 2 upon admission. Labs including CBC, INR, liver enzymes are unremarkable. Creatinine is elevated at 1.5, unknown baseline. Troponin is -0.019 and then increase to 0.041 Chest x-ray: No acute process by radiologist. EKG showing sinus bradycardia at [address]-T changes and QTC of 412. In the emergency room patient got aspirin 324 mg and was started on heparin drip, also receive blood pressure medication 05/10/2020 Patient seen the walking with no difficulty, he denies chest pain or dyspnea. He underwent cardiac cath today and stent was placed in the right coronary artery were resolving of his stenosis from 90% down to 10%. Vitals are stable and creatinine back to normal at 0.9. Nephrology input is appreciated. Patient is currently on aspirin and Plavix Objective - Vital Signs Vital signs: Vital Signs Temp 97.9 F 05/10/20 16:00 Pulse 73 05/10/20 16:00 Resp 18 05/10/20 16:00 BP 121/64 05/10/20 16:00 Pulse Ox 96 05/10/20 16:00 Intake & Output 05/09/20 05/10/20 05/10/20 18:59 06:59 18:59 Intake Total 368.011 621.989 375 Balance 368.011 621.989 375 Weight 90.2 kg Intake: IV 375 Intake, IV Titration 128.011 121.989 Amount Heparin Sod,Pork in 0.45% 128.011 121.989 NaCl 25,000 unit In 0.45 % NaCl 1 250ml.bag @ 10 UNITS/KG/HR 9.299 mls/hr IV .Q24H [facility] Rx#: [id number] Oral 240 500 Other: # Voids 1 1 - Exam GENERAL: The patient is alert and oriented x3, not in any acute distress. Well developed, well nourished. HEENT: Pupils are round and equally reacting to light. EOMI. No scleral icterus. No conjunctival pallor. Normocephalic, atraumatic. No pharyngeal erythema. No thyromegaly. CARDIOVASCULAR: S1 and S2 present. No murmurs, rubs, or gallops. PULMONARY: Chest is clear to auscultation, no wheezing or crackles. ABDOMEN: Soft, nontender, nondistended, normoactive bowel sounds. No palpable organomegaly. MUSCULOSKELETAL: No joint swelling or deformity. EXTREMITIES: No cyanosis, clubbing, or pedal edema. NEUROLOGICAL: Gross neurological examination did not reveal any focal deficits. SKIN: No rashes. no petechiae. - Labs CBC & Chem 7: 05/10/20 05:28 05/10/20 05:28 Labs: Abnormal Lab Results - Last 24 Hours (Table) 05/09/20 05/10/20 05/10/20 Range/Units 20:48 05:28 05:28 APTT 44.1 H 45.3 H (22.0-30.0) sec HDL Cholesterol 30 L (40-60) mg/dL Assessment and Plan Assessment: Elevated troponin, suspicious for non-STEMI. Status post cardiac cath and stent placement of the right coronary artery. Hypertension, with urgency, currently controlled Acute kidney injury, back to normal History of coronary artery disease status post stent placement Plan: This is a pleasant 65 years old male who presents with chest pain and hypertensive urgency. Status post stent of the RCA. Continue with aspirin and Plavix, cardiology consult. Continue with intravenous hydration. Resume his blood pressure medication of hydralazine, nifedipine and Coreg which is increased to 25 mg twice daily, hydralazine increased to 75 mg 3 times a day Labs and medication were reviewed.. Continue same treatment. Continue with symptomatic treatment. Resume home medication. Monitor lytes and vitals. DVT and GI prophylaxis. Further recommendations of the clinical course of the patient DVT prophylaxis: heparin GI Prophylaxis: Pepcid Prognosis is guarded Possible discharge in 24-48 hours
[2020-05-10] MEDS: HEPARIN SODIUM,PORCINE 5,000 UNIT/ML 1 ML VIAL SQ SCH ×2 (20:56→21:07)
[2020-05-11] MEDS: CARVEDILOL 12.5 MG TAB PO SCH ×2 (06:19→17:12)
[2020-05-11 06:51] LABS: Basophils % (A) 1 %; Eosinophils # (A) 0.3 k/uL (0-0.7); Eosinophils % (A) 4 %; HCT 45.6 % (39.0-53.0); HGB 14.8 gm/dL (13.0-17.5); Lymphocytes # (A) 1.2 k/uL (1.0-4.8); Lymphocytes % (A) 16 %; MCH 29.6 pg (25.0-35.0); MCHC 32.4 g/dL (31.0-37.0); MCV 91.1 fL (80.0-100.0); Mean Platelet Volume 8.3; Monocytes # (A) 0.6 k/uL (0-1.0); Monocytes % (A) 8 %; Neutrophils # (A) 5.1 k/uL (1.3-7.7); Neutrophils % (A) 70 %; Platelet Count 268 k/uL (150-450); RDW 13.6 % (11.5-15.5); WBC 7.3 k/uL (3.8-10.6)
[2020-05-11 07:15] LABS: Calcium 9.8 mg/dL (8.4-10.2); Potassium 4.3 mmol/L (3.5-5.1)
[2020-05-11] MEDS: buPROPion 75 MG TAB PO SCH ×2 (09:28→22:05)
[2020-05-11] MEDS: ATORVASTATIN 40 MG TAB PO SCH (09:28)
[2020-05-11] MEDS: ASPIRIN 81 MG PO SCH (09:28)
[2020-05-11] MEDS: HEPARIN SODIUM,PORCINE 5,000 UNIT/ML 1 ML VIAL SQ SCH ×2 (09:29→22:20)
[2020-05-11] MEDS: FAMOTIDINE 20 MG/2 ML VIAL IV SCH ×2 (09:29→22:20)
[2020-05-11] MEDS: CLOPIDOGREL 75 MG TAB PO SCH (09:29)
[2020-05-11] MEDS: LISINOPRIL 20 MG TAB PO SCH ×2 (09:30→22:06)
[2020-05-11] MEDS: hydrALAZINE HCL 25 MG TAB PO SCH ×3 (09:30→22:08)
[2020-05-11] MEDS: MAGNESIUM OXIDE 400 MG TAB PO SCH (09:31)
[2020-05-11] MEDS: ISOSORBIDE MONONITRATE ER 60 MG TAB.ER.24H PO SCH (09:40)
--- NOTE | 2020-05-11 12:03 | P.PN ---
Subjective Progress Note Date: 05/11/20 This is a 65-year-old gentleman with past medical history significant for coronary artery disease and multiple prior PCI's, prior myocardial infarction, hypertension, depression, hyperlipidemia, presented to the hospital with symptoms of chest discomfort. He was taken to the cardiac catheterization lab where he underwent angioplasty and stenting of the right coronary artery. His echocardiogram with Doppler study was performed which revealed an ejection fraction of 50-55%. He denied any chest discomfort this morning, blood pressure 136/60 with a heart rate in the 60s, 97% on room air. White blood cell count 7.3, hemoglobin 14.8, platelet count 268. Sodium 140, potassium 4.3, BUN 9, cr eatinine 1.0, magnesium 2.0. Echocardiogram with Doppler study was performed but is yet pending. Objective - Vital Signs Vital signs: Vital Signs Temp 98.3 F 05/11/20 11:00 Pulse 63 05/11/20 11:00 Resp 18 05/11/20 11:00 BP 136/66 05/11/20 11:00 Pulse Ox 97 05/11/20 11:00 Intake & Output 05/10/20 05/11/20 05/11/20 18:59 06:59 18:59 Intake Total 575 240 Balance 575 240 Weight 89.9 kg Intake: IV 375 Oral 200 240 Other: # Voids 2 - Exam PHYSICAL EXAMINATION: GENERAL: 65-year-old gentleman in no acute distress at the time of my examination HEENT: Head is atraumatic, normocephalic. Pupils equal, round. Sclera an icteric. Conjunctiva are clear. Mucous membranes of the mouth are moist. Neck is supple. There is no elevated jugular venous pressure. No carotid bruit is heard. HEART EXAMINATION: Heart S1, S2 normal. No murmur or gallop heard. CHEST EXAMINATION: Lungs are clear to auscultation and precussion. No chest wall tenderness is noted on palpation or with deep breathing. ABDOMEN: Soft, nontender. Bowel sounds are heard. No organomegaly noted. EXTREMITIES: 2+ peripheral pulses with no evidence of peripheral edema and no calf tenderness noted. Right radial site clean and dry, good distal pulse. NEUROLOGIC patient is awake, alert and oriented X3. . - Labs CBC & Chem 7: 05/11/20 05:55 05/11/20 05:55 Assessment and Plan Plan: Assessment and plan #1 acute coronary syndrome, status post angioplasty and stenting of the RCA #2 history of prior myocardial infarctions and PCI's #3 hypertension #4 hyperlipidemia #5 depression and anxiety Plan We will continue current medications including dual antiplatelet therapy. Review echo. Patient may be discharged home today from cardiology's perspective. We will make a follow-up appointment in the office post discharge. DNP note has been reviewed, I agree with a documented findings and plan of care. Patient was seen and examined.
[2020-05-11 13:57] VITALS: BMI 26.9
--- NOTE | 2020-05-11 16:45 | P.PN ---
Subjective Patient is seen in follow for acute kidney injury. Renal function is stable. No active chest pain or shortness of breath at this time. Hemodynamically stable. Oral intake is good. Good urine output. Vital signs are stable. General: The patient appeared well nourished and normally developed. HEENT: Head exam is unremarkable. Neck is without jugular venous distension. LUNGS: Lungs are clear to auscultation and percussion. Breath sounds decreased. HEART: Rate and Rhythm are regular. ABDOMEN: Soft, nontender. EXTREMITITES: No clubbing, cyanosis, or edema. Objective - Vital Signs Vital signs: Vital Signs Temp 97.6 F 05/11/20 12:00 Pulse 63 05/11/20 12:00 Resp 18 05/11/20 12:00 BP 117/71 05/11/20 12:00 Pulse Ox 99 05/11/20 12:00 Intake & Output 05/10/20 05/11/20 05/11/20 18:59 06:59 18:59 Intake Total 575 480 Balance 575 480 Weight 89.9 kg 89.9 kg Intake: IV 375 Oral 200 480 Other: # Voids 2 2 - Labs CBC & Chem 7: 05/11/20 05:55 05/11/20 05:55 Assessment and Plan Plan: Assessment: 1. Acute kidney injury mostly prerenal secondary to hemodynamic instability. Creatinine was 1.54 on admission and is 1.07 today. UA benign. 2. Chest pain secondary to acute coronary syndrome. Status post cardiac catheterization in May 10 with stent placed to the distal right coronary artery. Patient received IV fluids pre-and post cardiac catheterization. 3. History of coronary disease with multiple stents. 4. Benign hypertension. Better controlled. Plan: Continue to monitor renal function and urine output. Avoid nephrotoxins. Encouraged oral intake.
[2020-05-11] MEDS: NITROGLYCERIN SL TABS 0.4 MG TAB SUBLINGUAL PRN (18:54)
--- NOTE | 2020-05-11 19:39 | P.PN ---
Subjective This is a pleasant 65 years old male with past medical history of coronary artery disease status post stent, hypertension. Patient states that he has history of 10-12 stents, he follows up with hot water heater installer and referred however he referred him last month also he follow-up with Aleena Tyler . Presents because of chest pain 2-3 days duration, with lack similar chest pain when he has heart attack. Centrally radiating to both arm about 7-8/10 in severity, associated with nausea vomiting but no dyspnea. Patient states that he was compliant with his medication Also is complaining of from little bit increased frequency of urination with little amount about 4-5 times per night. No diarrhea. Denies smoking, alcohol or illicit drugs Vital signs stable, blood pressure on the high side 165/88, was 200/1 or 2 upon admission. Labs including CBC, INR, liver enzymes are unremarkable. Creatinine is elevated at 1.5, unknown baseline. Troponin is -0.019 and then increase to 0.041 Chest x-ray: No acute process by radiologist. EKG showing sinus bradycardia at [address]-T changes and QTC of 412. In the emergency room patient got aspirin 324 mg and was started on heparin drip, also receive blood pressure medication 05/10/2020 Patient seen the walking with no difficulty, he denies chest pain or dyspnea. He underwent cardiac cath today and stent was placed in the right coronary artery were resolving of his stenosis from 90% down to 10%. Vitals are stable and creatinine back to normal at 0.9. Nephrology input is appreciated. Patient is currently on aspirin and Plavix 05/11/2020 Patient is awake and alert, no chest pain or dyspnea. Vitals are stable, she was controlled Cartilage team are following the patient closely. Discussed with cardiology team will keep monitoring for now Possible discharge in 24-48 hours Objective - Vital Signs Vital signs: Vital Signs Temp 97.8 F 05/11/20 17:04 Pulse 75 05/11/20 17:04 Resp 18 05/11/20 17:04 BP 182/92 05/11/20 17:04 Pulse Ox 97 05/11/20 17:04 Intake & Output 05/11/20 05/11/20 05/12/20 06:59 18:59 06:59 Intake Total 480 Balance 480 Weight 89.9 kg 89.9 kg Intake: Oral 480 Other: # Voids 2 2 - Exam GENERAL: The patient is alert and oriented x3, not in any acute distress. Well developed, well nourished. HEENT: Pupils are round and equally reacting to light. EOMI. No scleral icterus. No conjunctival pallor. Normocephalic, atraumatic. No pharyngeal erythema. No thyromegaly. CARDIOVASCULAR: S1 and S2 present. No murmurs, rubs, or gallops. PULMONARY: Chest is clear to auscultation, no wheezing or crackles. ABDOMEN: Soft, nontender, nondistended, normoactive bowel sounds. No palpable organomegaly. MUSCULOSKELETAL: No joint swelling or deformity. EXTREMITIES: No cyanosis, clubbing, or pedal edema. NEUROLOGICAL: Gross neurological examination did not reveal any focal deficits. SKIN: No rashes. no petechiae. - Labs CBC & Chem 7: 05/11/20 05:55 05/11/20 05:55 Assessment and Plan Assessment: Elevated troponin, suspicious for non-STEMI. Status post cardiac cath and stent placement of the right coronary artery. Hypertension, with urgency, currently controlled Acute kidney injury, back to normal History of coronary artery disease status post stent placement Plan: This is a pleasant 65 years old male who presents with chest pain and hypertensive urgency. Status post stent of the RCA. Continue with aspirin and Plavix, cardiology consult. Continue with intravenous hydration. Resume his blood pressure medication of hydralazine, nifedipine and Coreg which is increased to 25 mg twice daily, hydralazine increased to 75 mg 3 times a day Labs and medication were reviewed.. Continue same treatment. Continue with symptomatic treatment. Resume home medication. Monitor lytes and vitals. DVT and GI prophylaxis. Further recommendations of the clinical course of the patient DVT prophylaxis: heparin GI Prophylaxis: Pepcid Prognosis is guarded Possible discharge in 24-48 hours
[2020-05-12 00:50] VITALS: RESP 16
[2020-05-12] MEDS: CARVEDILOL 12.5 MG TAB PO SCH (06:12)
[2020-05-12 07:28] LABS: Basophils % (A) 1 %; Eosinophils # (A) 0.3 k/uL (0-0.7); Eosinophils % (A) 3 %; HCT 45.9 % (39.0-53.0); HGB 14.6 gm/dL (13.0-17.5); Lymphocytes # (A) 1.5 k/uL (1.0-4.8); Lymphocytes % (A) 17 %; MCH 29.2 pg (25.0-35.0); MCHC 31.8 g/dL (31.0-37.0); MCV 91.7 fL (80.0-100.0); Mean Platelet Volume 8.4; Monocytes # (A) 0.6 k/uL (0-1.0); Monocytes % (A) 7 %; Neutrophils # (A) 5.8 k/uL (1.3-7.7); Neutrophils % (A) 69 %; Platelet Count 267 k/uL (150-450); RBC 5.01 m/uL (4.30-5.90); RDW 13.6 % (11.5-15.5); WBC 8.4 k/uL (3.8-10.6)
[2020-05-12 07:57] LABS: Calcium 9.6 mg/dL (8.4-10.2); Magnesium 2.2 mg/dL (1.6-2.3); Potassium 4.1 mmol/L (3.5-5.1)
--- NOTE | 2020-05-12 09:12 | P.DS ---
Providers Date of admission: 05/11/20 09:31 Attending physician: Manan Henry Consults: 05/09/20 01:54 Consult Physician Routine Consulting Provider: Howard Garces Consult Reason/Comments: chest pain Do you want consulting provider notified?: Yes 05/09/20 12:51 Consult Physician Routine Consulting Provider: Tino Nicholas Consult Reason/Comments: elevated Creatinine Do you want consulting provider notified?: Yes 05/10/20 11:45 Consult Physician Routine Consulting Provider: [facility] Consult Reason/Comments: Post Interventional patient Do you want consulting provider notified?: Already Contacted Primary care physician: Tonny Velazquez Hospital Course: Diagnoses: Elevated troponin, suspicious for non-STEMI. Status post cardiac cath and stent placement of the right coronary artery. Hypertension, with urgency, POA. currently controlled Acute kidney injury, creatinine back to normal History of coronary artery disease status post previous stent placement Hospital course: This is a pleasant 65 years old male with past medical history of coronary artery disease status post stent, hypertension. Patient states that he has history of 10-12 stents in the past, he follows up with cellophane bath mixer, also he follow-up with Aleena Tyler . Presents because of chest pain 2-3 days duration, Troponin is -0.019 and then increase to 0.041, cellophane bath mixer evaluated the patient, he underwent cardiac cath and stent was placed in the right coronary artery with resolving of his stenosis from 90% down to 10%. His acute kidney injury present on admission resolved. Patient blood pressure medication increased for uncontrolled hypertension, His blood pressure better controlled with increasing medication hydralazine 75 mg 3 times a day, Coreg 25 mg twice a day, lisinopril 20 mg and Imdur 120 mg, also on nifedipine 60 mg daily Also patient is on aspirin and Plavix On the day of discharge patient's he feels better, is fully awake and oriented walking without difficulty, he denies chest pain or dyspnea. No abdominal pain. No change in urine or bowel habits. No fever Patient was cleared for discharge by cellophane bath mixer and veterinary medical officer. Discussed with cardiology team and they cleared him for discharge today Problems and management plan were discussed with the patient and he verbalized understanding and acceptance Patient was found stable and can be discharged home however he needs follow-up as an outpatient. Patient was instructed to follow up with PCP Aleena Tyler within one week and patient agrees. Also patient was instructed to follow up with her cellophane bath mixer Dr. Garces in one week, he agrees and he wants to make his own appointments. I went over his medication and scripts with him he does not need any of his home medication except for lisinopril which he does not have an hydralazine because of her new higher dose. And I asked him specifically about aspirin and Plavix and he did not want and scripts and stated to me he has them at home. Gen. : patient is a AAOx3, no distress CVS: S1-S2, RRR, no murmur Lungs: B/L CTA, no wheezing Abdomen: soft, no distention, no tenderness, positive bowel sounds Extremity: no leg edema or induration Time spent more than 35 minutes Plan - Discharge Summary Discharge Rx Participant: No New Discharge Prescriptions: New hydrALAZINE HCL [Apresoline] 75 mg PO TID #270 tab Continue Cholecalciferol [Vitamin D3 (25 Mcg = 1000 Iu)] 5,000 unit PO DAILY busPIRone HCL 5 mg PO BID NIFEdipine XL [Procardia XL] 60 mg PO DAILY Magnesium Oxide [Mag-Oxide] 400 mg PO DAILY Isosorbide Mononitrate [Isosorbide Mononitrate ER] 120 mg PO DAILY Clopidogrel Bisulfate [Plavix] 75 mg PO DAILY Carvedilol 25 mg PO BID Atorvastatin [Lipitor] 40 mg PO DAILY Aspirin 81 mg PO DAILY buPROPion SR [Wellbutrin SR] 150 mg PO BID Nitroglycerin Sl Tabs [Nitrostat] 0.4 mg PO Q5M PRN PRN Reason: CHEST PAIN Lisinopril 20 mg PO BID #30 tab Discontinued hydrALAZINE HCL 25 mg PO TID@0600,1400,2200 Discharge Medication List Aspirin 81 mg PO DAILY 05/09/20 [History] Atorvastatin [Lipitor] 40 mg PO DAILY 05/09/20 [History] Carvedilol 25 mg PO BID 05/09/20 [History] Cholecalciferol [Vitamin D3 (25 Mcg = 1000 Iu)] 5,000 unit PO DAILY 05/09/20 [History] Clopidogrel Bisulfate [Plavix] 75 mg PO DAILY 05/09/20 [History] Isosorbide Mononitrate [Isosorbide Mononitrate ER] 120 mg PO DAILY 05/09/20 [History] Magnesium Oxide [Mag-Oxide] 400 mg PO DAILY 05/09/20 [History] NIFEdipine XL [Procardia XL] 60 mg PO DAILY 05/09/20 [History] Nitroglycerin Sl Tabs [Nitrostat] 0.4 mg PO Q5M PRN 05/09/20 [History] buPROPion SR [Wellbutrin SR] 150 mg PO BID 05/09/20 [History] busPIRone HCL 5 mg PO BID 05/09/20 [History] Lisinopril 20 mg PO BID #30 tab 05/12/20 [Rx] hydrALAZINE HCL [Apresoline] 75 mg PO TID #270 tab 05/12/20 [Rx] Follow up Appointment(s)/Referral(s): Tonny Velazquez DO [Primary Care Provider] - 1-2 days (he sees [employer]PERATOR Aleena Tyler ) Howard Garces MD [STAFF PHYSICIAN] - 1 Week Activity/Diet/Wound Care/Special Instructions: Heart healthy diet Activity is limited to till you see your doctor Discharge Disposition: HOME SELF-CARE
[2020-05-12] MEDS: FAMOTIDINE 20 MG/2 ML VIAL IV SCH (09:24)
[2020-05-12] MEDS: HEPARIN SODIUM,PORCINE 5,000 UNIT/ML 1 ML VIAL SQ SCH ×2 (09:24→09:36)
[2020-05-12] MEDS: hydrALAZINE HCL 25 MG TAB PO SCH (09:26)
[2020-05-12] MEDS: ATORVASTATIN 40 MG TAB PO SCH (09:27)
[2020-05-12] MEDS: buPROPion 75 MG TAB PO SCH (09:27)
[2020-05-12] MEDS: CLOPIDOGREL 75 MG TAB PO SCH (09:27)
[2020-05-12] MEDS: MAGNESIUM OXIDE 400 MG TAB PO SCH (09:27)
[2020-05-12] MEDS: ASPIRIN 81 MG PO SCH (09:27)
[2020-05-12] MEDS: LISINOPRIL 20 MG TAB PO SCH (09:27)
[2020-05-12] MEDS: ISOSORBIDE MONONITRATE ER 60 MG TAB.ER.24H PO SCH (09:27)
[2020-05-12 09:39] VITALS: BP 132/65; PULSE 70; TEMP 97.9
--- NOTE | 2020-05-12 10:07 | P.PN ---
Subjective Progress Note Date: 05/12/20 This is a 65-year-old gentleman with past medical history significant for coronary artery disease and multiple prior PCI's, prior myocardial infarction, hypertension, depression, hyperlipidemia, presented to the hospital with symptoms of chest discomfort. He was taken to the cardiac catheterization lab where he underwent angioplasty and stenting of the right coronary artery. His echocardiogram with Doppler study was performed which revealed an ejection fraction of 50-55%. He denied any chest discomfort this morning, blood pressure 136/60 with a heart rate in the 60s, 97% on room air. White blood cell count 7.3, hemoglobin 14.8, platelet count 268. Sodium 140, potassium 4.3, BUN 9, cr eatinine 1.0, magnesium 2.0. Echocardiogram with Doppler study was performed but is yet pending. 05/12/2020 Patient was seen and examined this morning, he did state that he had an episode of chest discomfort through the night last night. An EKG was performed at that time which did not reveal any acute changes. Blood pressure 130/60 with a heart rate in the 70s, 98% on room air. White blood cell count 8.4, hemoglobin 14.6, platelet count 267. Sodium 139, potassium 4.1, BUN 15, creatinine 1.1. Objective - Vital Signs Vital signs: Vital Signs Temp 97.9 F 05/12/20 09:38 Pulse 70 05/12/20 09:38 Resp 16 05/12/20 09:38 BP 132/65 05/12/20 09:38 Pulse Ox 98 05/12/20 09:38 Intake & Output 05/11/20 05/12/20 05/12/20 18:59 06:59 18:59 Intake Total 480 237 Balance 480 237 Weight 89.9 kg 88.5 kg Intake: Oral 480 237 Other: # Voids 2 2 - Exam PHYSICAL EXAMINATION: GENERAL: 65-year-old gentleman in no acute distress at the time of my examination HEENT: Head is atraumatic, normocephalic. Pupils equal, round. Sclera ani cteric. Conjunctiva are clear. Mucous membranes of the mouth are moist. Neck is supple. There is no elevated jugular venous pressure. No carotid bruit is heard. HEART EXAMINATION: Heart S1, S2 normal. No murmur or gallop heard. CHEST EXAMINATION: Lungs are clear to auscultation and precussion. No chest wall tenderness is noted on palpation or with deep breathing. ABDOMEN: Soft, nontender. Bowel sounds are heard. No organomegaly noted. EXTREMITIES: 2+ peripheral pulses with no evidence of peripheral edema and no calf tenderness noted. Right radial site clean and dry, good distal pulse. NEUROLOGIC patient is awake, alert and oriented X3. . - Labs CBC & Chem 7: 05/12/20 06:08 05/12/20 06:08 Assessment and Plan Plan: Assessment and plan #1 acute coronary syndrome, status post angioplasty and stenting of the RCA #2 history of prior myocardial infarctions and PCI's #3 hypertension #4 hyperlipidemia #5 depression and anxiety Plan We will continue current medications including dual antiplatelet therapy. Echocardiogram with Doppler study revealed an ejection fraction of 55-60% . Patient may be discharged home today from cardiology's perspective. We will make a follow-up appointment in the office post discharge. DNP note has been reviewed, I agree with a documented findings and plan of care. Patient was seen and examined.
--- NOTE | 2020-05-12 10:14 | P.PN ---
Subjective Patient is seen in follow for acute kidney injury. Renal function is fairly stable. No active chest pain or shortness of breath at this time. However he did have stabbing chest pain last night. Hemodynamically stable. Oral intake is good. Good urine output. Vital signs are stable. General: The patient appeared well nourished and normally developed. HEENT: Head exam is unremarkable. Neck is without jugular venous distension. LUNGS: Lungs are clear to auscultation and percussion. Breath sounds decreased. HEART: Rate and Rhythm are regular. ABDOMEN: Soft, nontender. EXTREMITITES: No clubbing, cyanosis, or edema. Objective - Vital Signs Vital signs: Vital Signs Temp 97.9 F 05/12/20 09:38 Pulse 70 05/12/20 09:38 Resp 16 05/12/20 09:38 BP 132/65 05/12/20 09:38 Pulse Ox 98 05/12/20 09:38 Intake & Output 05/11/20 05/12/20 05/12/20 18:59 06:59 18:59 Intake Total 480 237 Balance 480 237 Weight 89.9 kg 88.5 kg Intake: Oral 480 237 Other: # Voids 2 2 - Labs CBC & Chem 7: 05/12/20 06:08 05/12/20 06:08 Assessment and Plan Plan: Assessment: 1. Acute kidney injury mostly prerenal secondary to hemodynamic instability. Creatinine was 1.54 on admission and is 1.19 today. UA benign. 2. Chest pain secondary to acute coronary syndrome. Status post cardiac catheterization in May 10 with stent placed to the distal right coronary artery. Patient received IV fluids pre-and post cardiac catheterization. 3. History of coronary disease with multiple stents. 4. Benign hypertension. Better controlled. Plan: Continue to monitor renal function and urine output. Avoid nephrotoxins. Encouraged oral intake. Anticipate discharge soon. Follow up outpatient in 2 weeks.
[2020-05-12] MEDS ORDERED: FAMOTIDINE 20 MG TAB PO SCH (21:00)
== END 2020-05-12 15:22 | disposition home or self-care (01) | DRG 251 ==
LOC: EC 00:02 → 1SOBS 01:54 → 3SCARD 05-10 13:47 → OBSVTOIN 05-11 09:31
PROVIDERS: ADMIT Hospitalist; ATTEND Hospitalist
PROC: 3E033GC Introduction of Other Therapeutic Substance into Peripheral Vein, Percutaneous Approach (ICD-10-PCS; principal; 2020-05-10 10:00)
PROC: 4A023N7 Measurement of Cardiac Sampling and Pressure, Left Heart, Percutaneous Approach (ICD-10-PCS; principal; 2020-05-10 10:00)
PROC: B2111ZZ Fluoroscopy of Multiple Coronary Arteries using Low Osmolar Contrast (ICD-10-PCS; principal; 2020-05-10 10:00)
PROC: 02703ZZ Dilation of Coronary Artery, One Artery, Percutaneous Approach (ICD-10-PCS; principal; 2020-05-10 10:00)
DX: I21.4 Non-ST elevation (NSTEMI) myocardial infarction (principal); N17.9 Acute kidney failure, unspecified; T82.855A Stenosis of coronary artery stent, initial encounter; I16.1 Hypertensive emergency; Z20.828 Contact with and (suspected) exposure to other viral communicable diseases; I11.9 Hypertensive heart disease without heart failure; I25.10 Atherosclerotic heart disease of native coronary artery without angina pectoris; E78.5 Hyperlipidemia, unspecified; F32.9 Major depressive disorder, single episode, unspecified; F41.9 Anxiety disorder, unspecified; R35.0 Frequency of micturition; R00.1 Bradycardia, unspecified; I25.2 Old myocardial infarction; Z79.82 Long term (current) use of aspirin; Z79.02 Long term (current) use of antithrombotics/antiplatelets; Z79.899 Other long term (current) drug therapy; Z95.5 Presence of coronary angioplasty implant and graft; Z98.890 Other specified postprocedural states; Z88.0 Allergy status to penicillin; Y83.1 Surgical operation with implant of artificial internal device as the cause of abnormal reaction of the patient, or of later complication, without mention of misadventure at the time of the procedure
CPT/HCPCS: 36415; 71046; 80048; 80053; 80061; 81003; 83735; 84484; 85025; 85347; 85610; 85730; 92920; 93005; 93306; 93458; 96365; 96375; 96376; 99285